=== PATIENT | female | born 1950 ===

== ENCOUNTER 2017-01-18 01:09 | Inpatient (IN) | payer MEDICAID, OTHER ==
[2017-01-18] MEDS ORDERED: Sodium Chloride 0.9% 1,000 ML IV ONE (01:42)
--- NOTE | 2017-01-18 01:51 | C.PDOC ---
History Of Present Illness 66 year old female who presents to the ER with a complaint of abdominal pain that began at 23:00. Patient has a Hx of hernia to the umbilical area; denies nausea, vomiting, or diarrhea. Chief Complaint (Nursing): Abdominal Pain History Per: Patient History/Exam Limitations: no limitations Onset/Duration Of Symptoms: Hrs Current Symptoms Are (Timing): Still Present Location Of Pain/Discomfort: Periumbilical Radiation Of Pain To:: None Quality Of Discomfort: Unable To Describe Associated Symptoms: denies: Nausea, Vomiting, Diarrhea Exacerbating Factors: None Alleviating Factors: None Recent travel outside of the [place]: No Abnormal Vaginal Bleeding: No Past Medical History Reviewed: Historical Data, Nursing Documentation, Vital Signs Vital Signs: Last Vital Signs Temp 98.6 F 01/18/17 03:00 Pulse 59 L 01/18/17 04:21 Resp 14 01/18/17 03:00 BP 148/96 H 01/18/17 03:00 Pulse Ox 99 01/18/17 03:26 - Medical History PMH: No Chronic Diseases Surgical History: No Surg Hx Family History: States: Unknown Family Hx - Social History Hx Alcohol Use: No Hx Substance Use: No - Immunization History Hx Tetanus Toxoid Vaccination: No Hx Influenza Vaccination: No Hx Pneumococcal Vaccination: No Review Of Systems Gastrointestinal: Positive for: Abdominal Pain. Negative for: Nausea, Vomiting , Diarrhea Physical Exam - Physical Exam Appears: Non-toxic, No Acute Distress Skin: Normal Color, Warm, Dry Head: Atraumatic, Normacephalic Oral Mucosa: Moist Chest: Symmetrical, No Tenderness Cardiovascular: Rhythm Regular, No Murmur Respiratory: Normal Breath Sounds, No Rales, No Rhonchi, No Wheezing Gastrointestinal/Abdominal: Soft, Other (Hard nonreducible hernia to umbilical area.) Neurological/Psych: Oriented x3, Normal Speech, Normal Cognition ED Course And Treatment - Laboratory Results Result Diagrams: 01/18/17 02:06 01/18/17 02:06 O2 Sat by Pulse Oximetry: 99 (Room air) Pulse Ox Interpretation: Normal - Radiology CXR: Interpreted by Fl CXR Interpretation: Yes: No Acute Disease, Cardiomegaly. No: Infiltrates - CT Scan/US CT abd/pel Other Rad Studies (CT/US): Read By Radiologist, Radiology Report Reviewed CT/US Interpretation: EXAM: CT Abdomen and Pelvis Without Intravenous Contrast. CLINICAL HISTORY: 66 years old, female; Pain; Abdominal pain; Additional info: Abd pain. TECHNIQUE: Axial computed tomography images of the abdomen and pelvis without intravenous contrast. This. CT exam was performed using one or more of the following dose reduction techniques: automated. exposure control, adjustment of the mA and/or kV according to patient size, and/ or use of iterative. reconstruction technique. Coronal and sagittal reformatted images were created and reviewed. COMPARISON: No relevant prior studies available. FINDINGS: Lower thorax: Mild cardiomegaly. Minimal atelectasis. ABDOMEN: Liver: Innumerable hypodense lesions, most of which too small to characterize. Larger lesions. measure fluid attenuation, compatible with cysts. Few calcifications. Gallbladder and bile ducts: Calcified gallstones. No ductal dilation. Pancreas: Unremarkable. No ductal dilation. Spleen: No splenomegaly. Adrenals: No mass. Kidneys and ureters: No renal calculi. No hydronephrosis. Stomach and bowel: Moderate to large umbilical hernia containing fat, dilated small bowel,. nondilated transverse colon. Several moderately dilated loops of small bowel proximal to hernia. Nondistended loops of small bowel distal to hernia. No definite mural thickening. Appendix: No findings to suggest acute appendicitis. PELVIS: Bladder: Unremarkable. No stones. Reproductive: Small uterine calcification. ABDOMEN and PELVIS: Intraperitoneal space: No significant fluid collection. No free air. Bones/joints: No acute fracture. Soft tissues: See above. Vasculature: Minimal atherosclerotic disease. No aneurysm. Lymph nodes: No pathologically enlarged lymph nodes. IMPRESSION: 1. Umbilical hernia containing bowel with probable resultant obstruction. 2. Incidental/non-acute findings are described above. Progress Note: CT abd/pel, blood work, and CXR ordered. Morphine and IV fluids administered. Disposition Discussed With : Rosas Mayen Doctor Will See Patient In The: Hospital Counseled Patient/Family Regarding: Diagnosis - Disposition Disposition: HOSPITALIZED Disposition Time: 03:01 Condition: STABLE - POA Present On Arrival: None - Clinical Impression Clinical Impression: Abdominal pain, Umbilical hernia, incarcerated - Scribe Statement The provider has reviewed the documentation as recorded by the Scribe Navdeep Hicks All medical record entries made by the Brentibmanny were at my direction and personally dictated by me. I have reviewed the chart and agree that the record accurately reflects my personal performance of the history, physical exam, medical decision making, and the department course for this patient. I have also personally directed, reviewed, and agree with the discharge instructions and disposition.
[2017-01-18] MEDS ORDERED: Sodium Chloride 0.9% 1,000 ML ONE (01:53)
[2017-01-18] MEDS ORDERED: Morphine 4 MG/ML VIAL ONE (02:07)
[2017-01-18 02:09] LABS: BASO % 0.2 % (0.0-2.0); EOS % 0.1 % (0.0-4.0); HEMATOCRIT 42.4 % (34.0-47.0); LYMPH # 0.8 K/uL (1.0-4.3); LYMPH % 6.1 % (20.0-40.0); MEAN CELL VOLUME 87.4 fL (81.0-99.0); MEAN CORPUSCULAR HEMOGLOBIN 28.5 pg (27.0-31.0); MEAN CORPUSCULAR HGB CONC 32.7 g/dL (33.0-37.0); MEAN PLATELET VOLUME 6.6 fL (7.2-11.7); MONO # 0.3 K/uL (0.0-0.8); MONO % 2.3 % (0.0-10.0); PLATELET COUNT 253 K/uL (130-400); RED CELL DISTRIBUTION WIDTH 13.5 % (11.5-14.5); WHITE BLOOD COUNT 13.2 K/uL (4.8-10.8)
[2017-01-18 02:19] LABS: CHLORIDE 103 mmol/L (98-107)
[2017-01-18 02:20] LABS: POTASSIUM 4.1 mmol/L (3.6-5.2); SODIUM 141 mmol/L (132-148)
[2017-01-18 02:22] LABS: ALB/GLOB RATIO 1.2 (1.0-2.1); ALKALINE PHOSPHATASE 104 U/L (38-126); AST/SGOT 46 U/L (14-36); BILIRUBIN,TOTAL 0.7 mg/dL (0.2-1.3); CARBON DIOXIDE 23 mmol/L (22-30); GFR AFRICAN-AMERICAN > 60
[2017-01-18 02:23] LABS: ALT/SGPT 42 U/L (9-52); BLOOD UREA NITROGEN 15 mg/dL (7-17); CALCIUM 9.1 mg/dl (8.6-10.4); GLUCOSE,RANDOM 154 mg/dL (65-105)
[2017-01-18 02:49] LABS: NEUTROPHIL 91 % (50-75); TOTAL CELLS COUNTED 100
--- NOTE | 2017-01-18 02:57 | CT ---
EXAM: CT Abdomen and Pelvis Without Intravenous Contrast CLINICAL HISTORY: 66 years old, female; Pain; Abdominal pain; Additional info: Abd pain TECHNIQUE: Axial computed tomography images of the abdomen and pelvis without intravenous contrast. This CT exam was performed using one or more of the following dose reduction techniques: automated exposure control, adjustment of the mA and/or kV according to patient size, and/or use of iterative reconstruction technique. Coronal and sagittal reformatted images were created and reviewed. COMPARISON: No relevant prior studies available. FINDINGS: Lower thorax: Mild cardiomegaly. Minimal atelectasis. ABDOMEN: Liver: Innumerable hypodense lesions, most of which too small to characterize. Larger lesions measure fluid attenuation, compatible with cysts. Few calcifications. Gallbladder and bile ducts: Calcified gallstones. No ductal dilation. Pancreas: Unremarkable. No ductal dilation. Spleen: No splenomegaly. Adrenals: No mass. Kidneys and ureters: No renal calculi. No hydronephrosis. Stomach and bowel: Moderate to large umbilical hernia containing fat, dilated small bowel, nondilated transverse colon. Several moderately dilated loops of small bowel proximal to hernia. Nondistended loops of small bowel distal to hernia. No definite mural thickening. Appendix: No findings to suggest acute appendicitis. PELVIS: Bladder: Unremarkable. No stones. Reproductive: Small uterine calcification. ABDOMEN and PELVIS: Intraperitoneal space: No significant fluid collection. No free air. Bones/joints: No acute fracture. Soft tissues: See above. Vasculature: Minimal atherosclerotic disease. No aneurysm. Lymph nodes: No pathologically enlarged lymph nodes. IMPRESSION: 1. Umbilical hernia containing bowel with probable resultant obstruction. 2. Incidental/non-acute findings are described above.
[2017-01-18] MEDS ORDERED: HYDROmorphone 0.5 mg/0.5 ml ISec SC PRN (04:23)
--- NOTE | 2017-01-18 07:05 | CP.PCM.HP ---
History of Present Illness - History of Present Illness History of Present Illness: Surgery H & P for Dr. Mayen 66 F w PMH of ventral hernia came with abdominal pain. Pt reports having ventral hernia for 3 year and has been able to reduce it in the past. Pt also had intermittent pain. This time, sharp pain started last night and pt was unable to reduce it this time. Pt is persistent and localised. Reports that hernia has been increasing in size over the years. Area is red and TTP. Pt reports non bloody non bilious N/V since last night and last BM was 2 days ago. No blood. Soft regular BM at that time. Denies F/C/D/Cp/SOB. Last time she ate was last night and worsen the pain. CT shows SB incarcerated ventral hernia with SBO. Present on Admission - Present on Admission Any Indicators Present on Admission: No Review of Systems - Review of Systems Review of Systems: See HPI Past Patient History - Infectious Disease Hx of Infectious Diseases: None - Past Social History Smoking Status: Never Smoked - PSYCHIATRIC Hx Substance Use: No - SURGICAL HISTORY Hx Surgeries: No - ANESTHESIA Hx Anesthesia: No Meds Allergies/Adverse Reactions: Allergies Allergy/AdvReac Type Severity Reaction Status Date / Time No Known Allergies Allergy Unverified 01/18/17 01:36 Physical Exam - Constitutional Appears: In Acute Distress - Head Exam Head Exam: ATRAUMATIC, NORMAL INSPECTION, NORMOCEPHALIC - Eye Exam Eye Exam: EOMI, Normal appearance, PERRL Pupil Exam: NORMAL ACCOMODATION, PERRL - ENT Exam ENT Exam: Mucous Membranes Moist, Normal Exam - Neck Exam Neck exam: Positive for: Normal Inspection - Respiratory Exam Respiratory Exam: Clear to Auscultation Bilateral, NORMAL BREATHING PATTERN - Cardiovascular Exam Cardiovascular Exam: REGULAR RHYTHM - GI/Abdominal Exam GI & Abdominal Exam: Guarding, Hernia, Soft, Tenderness. absent: Distended, Firm, Rebound, Rigid Additional comments: 20x 20 x 5 cm ventral hernia. Erythema. TTP. - Rectal Exam Rectal Exam: NORMAL INSPECTION - Exam Exam: NORMAL INSPECTION - Extremities Exam Extremities exam: Positive for: full ROM, normal inspection - Back Exam Back exam: NORMAL INSPECTION - Neurological Exam Neurological exam: Alert, CN II-XII Intact, Normal Gait, Oriented x3, Reflexes Normal - Psychiatric Exam Psychiatric exam: Normal Affect, Normal Mood - Skin Skin Exam: Dry, Intact, Normal Color, Warm Results - Vital Signs Recent Vital Signs: Last Vital Signs Temp 98.3 F 01/18/17 05:20 Pulse 61 01/18/17 05:20 Resp 20 01/18/17 05:20 BP 148/87 01/18/17 05:20 Pulse Ox 97 01/18/17 05:20 - Labs Result Diagrams: 01/18/17 02:06 01/18/17 02:06 Assessment & Plan - Assessment and Plan (Free Text) Assessment: Incarcerated ventral hernia -OR today at 11AM -COnsent in chart. -IVF -ABX -NPO DW Dr. Mayen
[2017-01-18] MEDS: Piperacillin/Tazobact 3.375 GM in Sodium Chloride 100 ML IVPB SCH ×4 (07:53→20:46)
[2017-01-18] MEDS ORDERED: Midazolam 2 MG/2 ML VIAL ONE (10:04)
[2017-01-18] MEDS ORDERED: Propofol 10 mg/ml Inj (20 ML) ONE (10:04)
[2017-01-18] MEDS ORDERED: Rocuronium 10 mg/ml (5 ml) ONE (10:05)
[2017-01-18] MEDS ORDERED: Succinylcholine Chloride 20 mg/ml Syr (5 ml) IV ONE (10:11)
--- NOTE | 2017-01-18 10:19 | RAD ---
PROCEDURE: CHEST RADIOGRAPH, 1 VIEW HISTORY: abd pain/ admission COMPARISON: None available. FINDINGS: LUNGS: Poor inspiration with low lung volumes, crowded bronchovascular markings and mild bibasilar atelectasis. PLEURA: No pneumothorax or pleural fluid seen. CARDIOVASCULAR: Cardiomegaly. OSSEOUS STRUCTURES: No significant abnormalities. VISUALIZED UPPER ABDOMEN: Normal. OTHER FINDINGS: None. IMPRESSION: Poor inspiration with low lung volumes, crowded bronchovascular markings and mild bibasilar atelectasis.
[2017-01-18] MEDS ORDERED: Neostigmine Methylsulfate 3mg/3ml Syringe IV ONE (10:55)
[2017-01-18] MEDS ORDERED: Lactated Ringer's 1,000 ML IV ONE ×2 (11:23→20:38)
[2017-01-18] MEDS ORDERED: HYDROmorphone 0.5 mg/0.5 ml ISec IVP PRN ×2 (11:26→11:45)
--- NOTE | 2017-01-18 11:29 | PCM.SURG1 ---
Surgeon's Initial Post Op Note - Surgeon's Notes Surgeon: Dr. Mayen Fermenter Helper: Luiza Novoa, PGY2 Pre-Operative Diagnosis: Incarcerated umbilical hernia Operative Findings: See full report Post-Operative Diagnosis: same Operation Performed: Exploratory laparotomy with reduction of incarcerated bowel and repair of umbilical hernia with mesh Specimen/Specimens Removed: hernia sac Estimated Blood Loss: EBL {In ML}: 100 Date of Surgery/Procedure: 01/18/17 Time of Surgery/Procedure: 10:00
[2017-01-18] MEDS: Lactated Ringer's 1,000 ML IV SCH ×3 (13:00→22:30)
[2017-01-18] MEDS ORDERED: Lactated Ringer's 500 ML IV ONE (18:27)
--- NOTE | 2017-01-18 22:27 | OP ---
PROCEDURE DATE: 01/18/2017 PREOPERATIVE DIAGNOSIS: Incarcerated umbilical hernia, possibly strangulated. PROCEDURE PERFORMED: Repair of the hernia, lysis of adhesions, and exploratory laparotomy. FINDINGS: There was a huge mass in the umbilical area and this mass is a large hernia containing multiple loops of small bowel, omentum, and transverse colon. The bowels were viable; however, there were dense adhesions noted between the sac and the omentum. No other pathology noted except for some small amount of ascitic fluid noted during the start of the procedure. PROCEDURE: Under general anesthesia, the patient was prepared and draped in sterile fashion. A low-transverse incision was made over the mass, extended down the subcutaneous tissue. The skin was so thinned out that when incision was made, the sac was opened and a large amount of serous fluid was noted. There was no injury to the bowel at this *------*. The sac was then opened all the way down to the fascia level. At this point, the omental adhesions were taken down to free it. After a while, I was able to reduce the entire hernia. Because of the size of the incarcerated bowel, the fascial defect was increased in size by incising it both sides. This allowed me to reduce the hernia in small bowel, transverse colon, and omentum. The extra sac was then excised and then it was closed utilizing a continuous over and over suture of 0 Vicryl. The fascia was then closed with continuous suture of 0 Prolene and then this was reinforced by putting a ProLite mesh on the surface, suturing it to the fascia all the way around with multiple interrupted sutures of 0 Prolene. A drain was left in place. The umbilicus was tacked down into the fascia and the skin was closed with multiple skin arabella. Estimated blood loss probably about 100 mL. The patient tolerated the procedure quite well, left the operating room in good condition. Rosas Mayen MD
[2017-01-19] MEDS: HYDROmorphone 1 mg/ml ISec IVP PRN (00:34)
--- NOTE | 2017-01-19 01:51 | CP.PCM.PN ---
Subjective - Date & Time of Evaluation Date of Evaluation: 01/19/17 Time of Evaluation: 07:00 - Subjective Subjective: Patient seen and examined this AM. Yesterday evening patient had low UOP and was given fluid bolus challenges of 1500cc of LR with low, but adequate response. Approximately 50cc's sanguinous output from the gracy drain lying superficial to the abdominal fascia. Patient reports some pain, but denies any fevers, chills, nausea, vomiting, or any other symptoms. Objective - Vital Signs/Intake and Output Vital Signs (last 24 hours): Temp Pulse Resp BP Pulse Ox 99.5 F 73 20 110/68 95 01/18/17 19:57 01/18/17 19:57 01/18/17 19:57 01/18/17 19:57 01/18/17 19:57 Intake and Output: 01/18/17 01/19/17 18:59 06:59 Intake Total 1500 2100 Output Total 260 190 Balance 1240 1910 - Medications Medications: Current Medications Acetaminophen (Tylenol 325mg Tab) 650 mg PO Q6 PRN PRN Reason: Fever >100.4 F Hydromorphone HCl (Dilaudid) 1 mg IVP Q4H PRN PRN Reason: Pain, moderate (4-7) Last Admin: 01/19/17 00:34 Dose: 1 mg Piperacillin Sod/Tazobactam (Sod 3.375 gm/ Sodium Chloride) 100 mls @ 200 mls/ hr IVPB Q8H [facility] Last Admin: 01/18/17 20:46 Dose: 200 mls/hr Lactated Ringer's (Lactated Ringer's) 1,000 mls @ 100 mls/hr IV .Q10H [facility] Last Admin: 01/18/17 22:30 Dose: Not Given Ondansetron HCl (Zofran Inj) 4 mg IVP DAILY@ONCE PRN PRN Reason: Nausea/Vomiting - Labs Labs: PT 11.0 SECONDS (9.7-12.2) 01/18/17 02:06 INR 1.0 01/18/17 02:06 APTT 29 SECONDS (21-34) 01/18/17 02:06 - Constitutional Appears: No Acute Distress - Head Exam Head Exam: ATRAUMATIC, NORMOCEPHALIC - Eye Exam Eye Exam: Normal appearance. absent: Conjunctival injection, Scleral icterus - ENT Exam ENT Exam: Mucous Membranes Dry, Normal Oropharynx Additional comments: NGT in place in the right nares with minimal green/yellow clear liquid output - Respiratory Exam Respiratory Exam: NORMAL BREATHING PATTERN. absent: Accessory Muscle Use, Respiratory Distress - GI/Abdominal Exam GI & Abdominal Exam: Distended, Soft, Tenderness Additional comments: surgical dresssing C/D/i, Gracy drain in place with approximately 10cc's of sanguinous fluid - Extremities Exam Extremities Exam: absent: Calf Tenderness, Pedal Edema, Tenderness - Neurological Exam Neurological Exam: Alert, Awake, Oriented x3 - Psychiatric Exam Psychiatric exam: Flat Affect, Normal Mood - Skin Skin Exam: Dry, Normal Color, Warm Assessment and Plan - Assessment and Plan (Free Text) Assessment: 66F with incarcerated umbilical hernia containing obstructed bowel POD#1 s/p exploratory laparotomy with hernia reduction and repair with mesh Low UOP despite 2.5L boluses and 125cc/h LR overnight Plan: -D/C NGT -Trial CLD -continue trending CBC and BMP -Monitor drain output and urine output closely -Encourage incentive spirometer and ambulation -analgesia, anti-emetics -GI ppx, SCD's Discussed with Dr. Faheem Novoa PGY2
[2017-01-19] MEDS ORDERED: Sodium Chloride 0.9% 1,000 ML IV ONE (04:22)
[2017-01-19] MEDS: Piperacillin/Tazobact 3.375 GM in Sodium Chloride 100 ML IVPB SCH ×2 (04:32→11:44)
[2017-01-19] MEDS ORDERED: Benzocaine/Menthol (Cepacol) Lozenge MT PRN (06:29)
[2017-01-19 07:44] LABS: HEMATOCRIT 30.6 % (34.0-47.0); MEAN CELL VOLUME 87.8 fL (81.0-99.0); MEAN CORPUSCULAR HEMOGLOBIN 29.7 pg (27.0-31.0); MEAN CORPUSCULAR HGB CONC 33.8 g/dL (33.0-37.0); MEAN PLATELET VOLUME 6.6 fL (7.2-11.7); RED CELL DISTRIBUTION WIDTH 13.7 % (11.5-14.5); WHITE BLOOD COUNT 9.2 K/uL (4.8-10.8)
[2017-01-19 07:47] LABS: AST/SGOT 37 U/L (14-36); BILIRUBIN,TOTAL 1.3 mg/dL (0.2-1.3); BLOOD UREA NITROGEN 15 mg/dL (7-17); CALCIUM 7.1 mg/dl (8.6-10.4); CARBON DIOXIDE 26 mmol/L (22-30); CHLORIDE 105 mmol/L (98-107); GFR AFRICAN-AMERICAN > 60; GLUCOSE,RANDOM 115 mg/dL (65-105); POTASSIUM 3.7 mmol/L (3.6-5.2); TOTAL PROTEIN 5.2 g/dL (6.3-8.3)
[2017-01-19 08:05] LABS: ALKALINE PHOSPHATASE 58 U/L (38-126); ALT/SGPT 31 U/L (9-52); SODIUM 140 mmol/L (132-148)
[2017-01-19] MEDS: Lactated Ringer's 1,000 ML IV SCH ×2 (09:14→18:33)
--- NOTE | 2017-01-19 10:23 | RAD ---
HISTORY: Evaluate for atelectasis COMPARISON: Comparison made with prior study 01/18/2017 at 0230 hrs. FINDINGS: LUNGS: In situ NGT, tip of which lies left upper quadrant of the abdomen. Poor inspiration with low lung volumes, crowded bronchovascular markings and bibasilar atelectasis. PLEURA: No significant pleural effusion identified, no pneumothorax apparent. CARDIOVASCULAR: Heart remains enlarged. Aorta is ectatic and uncoiled. OSSEOUS STRUCTURES: No significant abnormalities. VISUALIZED UPPER ABDOMEN: Normal. OTHER FINDINGS: None. IMPRESSION: Poor inspiration with low lung volumes, crowded bronchovascular markings and mild bibasilar atelectasis. Developing infiltrates could be excluded followup radiographs. In situ NGT as above. Cardiomegaly.
[2017-01-19] MEDS: Piperacill/Tazo 3.375gm in Dex 3.375 GM/50 ML BAG IVPB SCH (19:46)
[2017-01-20] MEDS: HYDROmorphone 1 mg/ml ISec IVP PRN (03:29)
[2017-01-20] MEDS: Piperacill/Tazo 3.375gm in Dex 3.375 GM/50 ML BAG IVPB SCH ×3 (03:30→20:53)
[2017-01-20 06:14] LABS: HEMATOCRIT 30.8 % (34.0-47.0); MEAN CELL VOLUME 87.2 fL (81.0-99.0); MEAN CORPUSCULAR HEMOGLOBIN 28.9 pg (27.0-31.0); MEAN CORPUSCULAR HGB CONC 33.1 g/dL (33.0-37.0); MEAN PLATELET VOLUME 6.7 fL (7.2-11.7); RED CELL DISTRIBUTION WIDTH 13.3 % (11.5-14.5); WHITE BLOOD COUNT 11.5 K/uL (4.8-10.8)
[2017-01-20 07:19] LABS: CHLORIDE 102 mmol/L (98-107); SODIUM 140 mmol/L (132-148)
[2017-01-20 07:20] LABS: POTASSIUM 3.5 mmol/L (3.6-5.2)
[2017-01-20 07:22] LABS: ALKALINE PHOSPHATASE 62 U/L (38-126); ALT/SGPT 37 U/L (9-52); AST/SGOT 38 U/L (14-36); BLOOD UREA NITROGEN 10 mg/dL (7-17); CARBON DIOXIDE 26 mmol/L (22-30); GFR AFRICAN-AMERICAN > 60; GLUCOSE,RANDOM 114 mg/dL (65-105); TOTAL PROTEIN 5.7 g/dL (6.3-8.3)
[2017-01-20 07:23] LABS: CALCIUM 7.7 mg/dl (8.6-10.4)
--- NOTE | 2017-01-20 07:53 | CP.PCM.PN ---
Subjective - Date & Time of Evaluation Date of Evaluation: 01/20/17 Time of Evaluation: 07:15 - Subjective Subjective: General Sx progress note for Dr. Robert Combs, PGY-1 Pt S & E at bedside. Pt tolerated CLD diet yesterday, is voiding, continues with some ab pain. Currently with some nausea. Denies V/F/C, SOB, flatus, BM. Abdominal drain w/ 40cc serosanguinous output over last 24H. Objective - Vital Signs/Intake and Output Vital Signs (last 24 hours): Temp Pulse Resp BP Pulse Ox 98.4 F 66 20 124/77 99 01/20/17 04:25 01/20/17 04:25 01/20/17 04:25 01/20/17 04:25 01/20/17 04:25 Intake and Output: 01/20/17 01/20/17 06:59 18:59 Intake Total 1000 Output Total 720 Balance 280 - Medications Medications: Current Medications Acetaminophen (Tylenol 325mg Tab) 650 mg PO Q6 PRN PRN Reason: Fever >100.4 F Benzocaine/Menthol (Cepacol Sore Throat) 1 yuridia MT Q1 PRN PRN Reason: Sore Throat Hydromorphone HCl (Dilaudid) 1 mg IVP Q4H PRN PRN Reason: Pain, moderate (4-7) Last Admin: 01/20/17 03:29 Dose: 1 mg Lactated Ringer's (Lactated Ringer's) 1,000 mls @ 100 mls/hr IV .Q10H [facility] Last Admin: 01/19/17 18:33 Dose: 100 mls/hr Piperacillin Sod/Tazobactam Sod (Zosyn 3.375 Gm Iv Premix) 3.375 gm in 50 mls @ 100 mls/hr IVPB Q8H [facility] Last Admin: 01/20/17 03:30 Dose: 100 mls/hr Ondansetron HCl (Zofran Inj) 4 mg IVP DAILY@ONCE PRN PRN Reason: Nausea/Vomiting - Labs Labs: 01/20/17 06:00 01/20/17 06:00 PT 11.0 SECONDS (9.7-12.2) 01/18/17 02:06 INR 1.0 01/18/17 02:06 APTT 29 SECONDS (21-34) 01/18/17 02:06 - Constitutional Appears: Non-toxic, No Acute Distress - Head Exam Head Exam: ATRAUMATIC, NORMAL INSPECTION, NORMOCEPHALIC - Eye Exam Eye Exam: EOMI, Normal appearance - ENT Exam ENT Exam: Mucous Membranes Moist, Normal Exam - Neck Exam Neck Exam: Full ROM - Respiratory Exam Respiratory Exam: Clear to Ausculation Bilateral, NORMAL BREATHING PATTERN - Cardiovascular Exam Cardiovascular Exam: REGULAR RHYTHM, +S1, +S2 - GI/Abdominal Exam GI & Abdominal Exam: Soft, Tenderness, Hypoactive Bowel Sounds. absent: Distended, Firm, Guarding, Rigid Additional comments: Lower abdomen with dressing in place- C/D/I, SONI drain with ~10cc serosanginous output - Extremities Exam Extremities Exam: Normal Inspection. absent: Pedal Edema - Neurological Exam Neurological Exam: Alert, Awake, CN II-XII Intact, Oriented x3 - Psychiatric Exam Psychiatric exam: Normal Affect, Normal Mood - Skin Skin Exam: Dry, Warm Assessment and Plan - Assessment and Plan (Free Text) Assessment: 66F POD#2 s/p ex lap w/hernia reduction and repair w/mesh 2/2 incarcerated umbilical hernia w/obstructed bowel. Now voiding. Plan: Abdominal dressing changed this AM Cont CLD Awaiting ROBF Monitor drain ouput Encourage IS Encourage ambulation OOBTC pain mgmt Anti-emetics GI ppx SCDs PT DW attending Lauryn, PGY-1
--- NOTE | 2017-01-20 13:18 | CP.PCM.PN ---
Subjective - Date & Time of Evaluation Date of Evaluation: 01/20/17 Time of Evaluation: 13:16 - Subjective Subjective: patient denies passing flatus, is marked;y distended, and obviously has ileus. will start reglan q6h iv Objective - Vital Signs/Intake and Output Vital Signs (last 24 hours): Temp Pulse Resp BP Pulse Ox 98.1 F 69 20 166/99 H 98 01/20/17 07:40 01/20/17 07:40 01/20/17 07:40 01/20/17 07:40 01/20/17 07:40 Intake and Output: 01/20/17 01/20/17 06:59 18:59 Intake Total 1000 Output Total 720 Balance 280 - Medications Medications: Current Medications Acetaminophen (Tylenol 325mg Tab) 650 mg PO Q6 PRN PRN Reason: Fever >100.4 F Benzocaine/Menthol (Cepacol Sore Throat) 1 yuridia MT Q1 PRN PRN Reason: Sore Throat Last Admin: 01/20/17 11:16 Dose: 1 yuridia Hydromorphone HCl (Dilaudid) 1 mg IVP Q4H PRN PRN Reason: Pain, moderate (4-7) Last Admin: 01/20/17 03:29 Dose: 1 mg Lactated Ringer's (Lactated Ringer's) 1,000 mls @ 100 mls/hr IV .Q10H [facility] Last Admin: 01/19/17 18:33 Dose: 100 mls/hr Piperacillin Sod/Tazobactam Sod (Zosyn 3.375 Gm Iv Premix) 3.375 gm in 50 mls @ 100 mls/hr IVPB Q8H [facility] Last Admin: 01/20/17 11:13 Dose: 100 mls/hr Ondansetron HCl (Zofran Inj) 4 mg IVP DAILY@ONCE PRN PRN Reason: Nausea/Vomiting Last Admin: 01/20/17 09:00 Dose: 4 mg - Labs Labs: 01/20/17 06:00 01/20/17 06:00 PT 11.0 SECONDS (9.7-12.2) 01/18/17 02:06 INR 1.0 01/18/17 02:06 APTT 29 SECONDS (21-34) 01/18/17 02:06
[2017-01-20] MEDS: Lactated Ringer's 1,000 ML IV SCH (14:15)
[2017-01-20] MEDS ORDERED: Oxycodone/Acetaminophen 5/325 mg Tab PO PRN ×2 (15:42→15:45)
[2017-01-21] MEDS: Piperacill/Tazo 3.375gm in Dex 3.375 GM/50 ML BAG IVPB SCH ×3 (04:45→20:30)
[2017-01-21 06:55] LABS: HEMATOCRIT 30.5 % (34.0-47.0); MEAN CELL VOLUME 87.3 fL (81.0-99.0); MEAN CORPUSCULAR HEMOGLOBIN 29.9 pg (27.0-31.0); MEAN CORPUSCULAR HGB CONC 34.2 g/dL (33.0-37.0); MEAN PLATELET VOLUME 6.8 fL (7.2-11.7); RED CELL DISTRIBUTION WIDTH 13.2 % (11.5-14.5)
[2017-01-21 07:04] LABS: CHLORIDE 99 mmol/L (98-107); POTASSIUM 3.3 mmol/L (3.6-5.2); SODIUM 138 mmol/L (132-148)
[2017-01-21 07:06] LABS: ALKALINE PHOSPHATASE 57 U/L (38-126); AST/SGOT 36 U/L (14-36); CARBON DIOXIDE 25 mmol/L (22-30); GFR AFRICAN-AMERICAN > 60
[2017-01-21 07:07] LABS: ALT/SGPT 34 U/L (9-52); BLOOD UREA NITROGEN 14 mg/dL (7-17); CALCIUM 7.7 mg/dl (8.6-10.4); GLUCOSE,RANDOM 98 mg/dL (65-105); TOTAL PROTEIN 5.6 g/dL (6.3-8.3)
--- NOTE | 2017-01-21 08:10 | CP.PCM.PN ---
Subjective - Date & Time of Evaluation Date of Evaluation: 01/21/17 Time of Evaluation: 08:09 - Subjective Subjective: General sx progress note for Dr. Robert Combs, PGY-1 Pt S & E at bedside. Pt tolerating FLD, admits to flatus. Denies N/V/F/C, BM, SOB, CP, ab pain. Has not been OOB yet. Shaun drain with 40cc serosanguinous output/24H. Objective - Vital Signs/Intake and Output Vital Signs (last 24 hours): Temp Pulse Resp BP Pulse Ox 98.2 F 72 20 143/85 97 01/21/17 07:30 01/21/17 07:30 01/21/17 07:30 01/21/17 07:30 01/21/17 07:30 Intake and Output: 01/21/17 01/21/17 06:59 18:59 Intake Total 200 Output Total 320 Balance -120 - Medications Medications: Current Medications Acetaminophen (Tylenol 325mg Tab) 650 mg PO Q6 PRN PRN Reason: Fever >100.4 F Benzocaine/Menthol (Cepacol Sore Throat) 1 yuridia MT Q1 PRN PRN Reason: Sore Throat Last Admin: 01/20/17 11:16 Dose: 1 yuridia Heparin Sodium (Porcine) (Heparin) 5,000 units SC Q12 [facility]O Piperacillin Sod/Tazobactam Sod (Zosyn 3.375 Gm Iv Premix) 3.375 gm in 50 mls @ 100 mls/hr IVPB Q8H [facility] Last Admin: 01/21/17 04:45 Dose: 100 mls/hr Ondansetron HCl (Zofran Inj) 4 mg IVP DAILY@ONCE PRN PRN Reason: Nausea/Vomiting Last Admin: 01/20/17 09:00 Dose: 4 mg Oxycodone/Acetaminophen (Percocet 5/325 Mg Tab) 1 tab PO Q6H PRN PRN Reason: Pain, moderate (4-7) Stop: 01/23/17 15:43 Oxycodone/Acetaminophen (Percocet 5/325 Mg Tab) 2 tab PO Q6H PRN PRN Reason: Pain, severe (8-10) Stop: 01/23/17 15:46 Last Admin: 01/21/17 06:07 Dose: 2 tab Potassium Chloride (K-Dur 20 Meq Er Tab) 20 meq PO DAILY GAETANO - Labs Labs: 01/21/17 06:43 01/21/17 06:43 PT 11.0 SECONDS (9.7-12.2) 01/18/17 02:06 INR 1.0 01/18/17 02:06 APTT 29 SECONDS (21-34) 01/18/17 02:06 - Constitutional Appears: Non-toxic, No Acute Distress - Head Exam Head Exam: ATRAUMATIC, NORMAL INSPECTION, NORMOCEPHALIC - Eye Exam Eye Exam: EOMI, Normal appearance - ENT Exam ENT Exam: Mucous Membranes Moist, Normal Exam - Neck Exam Neck Exam: Full ROM - Respiratory Exam Respiratory Exam: Clear to Ausculation Bilateral, NORMAL BREATHING PATTERN. absent: Rales, Rhonchi, Wheezes, Respiratory Distress - Cardiovascular Exam Cardiovascular Exam: REGULAR RHYTHM, +S1, +S2 - GI/Abdominal Exam GI & Abdominal Exam: Distended, Soft, Hyperactive Bowel Sounds. absent: Firm, Guarding, Rigid, Tenderness Additional comments: Lower horizontal surgical incision with arabella intact minimal erythema, no drainage. Shaun drain in place with ~5cc serosanguinous output. - Extremities Exam Extremities Exam: Normal Inspection. absent: Pedal Edema - Neurological Exam Neurological Exam: Alert, Awake, CN II-XII Intact, Oriented x3 - Psychiatric Exam Psychiatric exam: Normal Affect, Normal Mood - Skin Skin Exam: Dry, Intact, Normal Color, Warm Assessment and Plan - Assessment and Plan (Free Text) Assessment: 66F POD#3 s/p ex lap w/hernia reduction and repair w/mesh 2/2 incarcerated umbilical hernia w/obstructed bowel. No BM yet. Plan: Abdominal dressing removed this AM Cont FLD Awaiting BM Monitor drain ouput Encourage IS Encourage ambulation OOBTC pain mgmt Anti-emetics GI ppx SCDs Reglan as per Dr. Mayen PT Will DW attending Lauryn, PGY-1
[2017-01-21] MEDS: Potassium Chloride 20 mEq ER Tab PO SCH (09:08)
[2017-01-22] MEDS: Piperacill/Tazo 3.375gm in Dex 3.375 GM/50 ML BAG IVPB SCH ×3 (04:09→21:33)
[2017-01-22] MEDS: Potassium Chloride 20 mEq ER Tab PO SCH (09:28)
[2017-01-22 11:20] LABS: BASO % 0.4 % (0.0-2.0); EOS # 0.3 K/uL (0.0-0.7); EOS % 3.2 % (0.0-4.0); HEMATOCRIT 33.1 % (34.0-47.0); LYMPH # 1.2 K/uL (1.0-4.3); LYMPH % 14.1 % (20.0-40.0); MEAN CELL VOLUME 87.4 fL (81.0-99.0); MEAN CORPUSCULAR HEMOGLOBIN 29.5 pg (27.0-31.0); MEAN CORPUSCULAR HGB CONC 33.8 g/dL (33.0-37.0); MONO # 0.7 K/uL (0.0-0.8); MONO % 7.9 % (0.0-10.0); RED CELL DISTRIBUTION WIDTH 13.3 % (11.5-14.5); WHITE BLOOD COUNT 8.5 K/uL (4.8-10.8)
[2017-01-22 11:32] LABS: CHLORIDE 96 mmol/L (98-107)
[2017-01-22 11:33] LABS: POTASSIUM 3.4 mmol/L (3.6-5.2); SODIUM 138 mmol/L (132-148)
[2017-01-22 11:35] LABS: AST/SGOT 37 U/L (14-36); BILIRUBIN,TOTAL 0.9 mg/dL (0.2-1.3); CARBON DIOXIDE 29 mmol/L (22-30); GFR AFRICAN-AMERICAN > 60
[2017-01-22 11:36] LABS: ALB/GLOB RATIO 1.1 (1.0-2.1); ALKALINE PHOSPHATASE 76 U/L (38-126); ALT/SGPT 36 U/L (9-52); BLOOD UREA NITROGEN 13 mg/dL (7-17); CALCIUM 8.2 mg/dl (8.6-10.4); GLUCOSE,RANDOM 153 mg/dL (65-105); TOTAL PROTEIN 6.6 g/dL (6.3-8.3)
--- NOTE | 2017-01-22 14:40 | CARD ---
APPROVED REPORT EKG Measurement Heart [id number] <Conclusion> Sinus bradycardia LVH with repolarization abnormality. Prolonged QT Abnormal ECG
--- NOTE | 2017-01-22 14:54 | CP.PCM.PN ---
Subjective - Date & Time of Evaluation Date of Evaluation: 01/22/17 Time of Evaluation: 07:40 - Subjective Subjective: Patient seen and examined this AM. CAROLO. Patient states that she has been passing gas but not had a bowel movement. Patient ambulated with nursing yesterday. Patient's reports pain well controlled with current regimen, is tolerating FLD. Objective - Vital Signs/Intake and Output Vital Signs (last 24 hours): Temp Pulse Resp BP Pulse Ox 98.6 F 76 20 162/83 H 95 01/22/17 08:08 01/22/17 08:08 01/22/17 08:08 01/22/17 08:08 01/22/17 08:08 Intake and Output: 01/22/17 01/22/17 06:59 18:59 Intake Total 250 310 Output Total 15 Balance 235 310 - Medications Medications: Current Medications Acetaminophen (Tylenol 325mg Tab) 650 mg PO Q6 PRN PRN Reason: Fever >100.4 F Benzocaine/Menthol (Cepacol Sore Throat) 1 yuridia MT Q1 PRN PRN Reason: Sore Throat Last Admin: 01/20/17 11:16 Dose: 1 yuridia Heparin Sodium (Porcine) (Heparin) 5,000 units SC Q12 [facility] Last Admin: 01/22/17 09:28 Dose: 5,000 units Piperacillin Sod/Tazobactam Sod (Zosyn 3.375 Gm Iv Premix) 3.375 gm in 50 mls @ 100 mls/hr IVPB Q8H [facility] Last Admin: 01/22/17 11:48 Dose: 100 mls/hr Metoclopramide HCl (Reglan) 10 mg IVP Q6 [facility] Last Admin: 01/22/17 11:48 Dose: 10 mg Ondansetron HCl (Zofran Inj) 4 mg IVP DAILY@ONCE PRN PRN Reason: Nausea/Vomiting Last Admin: 01/22/17 10:10 Dose: 4 mg Oxycodone/Acetaminophen (Percocet 5/325 Mg Tab) 1 tab PO Q6H PRN PRN Reason: Pain, moderate (4-7) Stop: 01/23/17 15:43 Oxycodone/Acetaminophen (Percocet 5/325 Mg Tab) 2 tab PO Q6H PRN PRN Reason: Pain, severe (8-10) Stop: 01/23/17 15:46 Last Admin: 01/21/17 06:07 Dose: 2 tab Potassium Chloride (K-Dur 20 Meq Er Tab) 20 meq PO DAILY GA[facility]ANO Last Admin: 01/22/17 09:28 Dose: 20 meq - Labs Labs: 01/22/17 11:11 01/22/17 11:11 PT 11.0 SECONDS (9.7-12.2) 01/18/17 02:06 INR 1.0 01/18/17 02:06 APTT 29 SECONDS (21-34) 01/18/17 02:06 - Constitutional Appears: Well, Non-toxic, No Acute Distress - Head Exam Head Exam: ATRAUMATIC, NORMOCEPHALIC - Eye Exam Eye Exam: Normal appearance. absent: Conjunctival injection, Scleral icterus - ENT Exam ENT Exam: Mucous Membranes Moist, Normal Oropharynx - Respiratory Exam Respiratory Exam: NORMAL BREATHING PATTERN. absent: Accessory Muscle Use, Respiratory Distress - Cardiovascular Exam Cardiovascular Exam: RRR - GI/Abdominal Exam GI & Abdominal Exam: Soft. absent: Distended, Tenderness Additional comments: gracy drain with scant sanguinous outpus - Extremities Exam Extremities Exam: Full ROM, Normal Inspection. absent: Calf Tenderness, Pedal Edema - Neurological Exam Neurological Exam: Alert, Awake, Oriented x3 - Psychiatric Exam Psychiatric exam: Normal Affect, Normal Mood - Skin Skin Exam: Dry, Intact, Normal Color, Warm Assessment and Plan - Assessment and Plan (Free Text) Assessment: 66F POD#4 s/p ex lap w/hernia reduction and repair w/mesh 2/2 incarcerated umbilical hernia w/obstructed bowel Plan: regular diet as tolerated D/C gracy drain Encourage IS Encourage ambulation pain mgmt, Anti-emetics GI ppx, DVT ppx Discussed with Dr. Faheem Novoa, PGY2
[2017-01-22] MEDS ORDERED: Tramadol 25 mg PO PRN (17:12)
[2017-01-23 02:41] VITALS: TEMP 98.2
[2017-01-23] MEDS: Piperacill/Tazo 3.375gm in Dex 3.375 GM/50 ML BAG IVPB SCH (04:42)
[2017-01-23 07:05] LABS: BLOOD UREA NITROGEN 12 mg/dL (7-17); CALCIUM 7.9 mg/dl (8.6-10.4); CARBON DIOXIDE 30 mmol/L (22-30); CHLORIDE 97 mmol/L (98-107); GFR AFRICAN-AMERICAN > 60; GLUCOSE,RANDOM 119 mg/dL (65-105); POTASSIUM 3.6 mmol/L (3.6-5.2); SODIUM 139 mmol/L (132-148)
[2017-01-23 07:17] LABS: BASO % 0.2 % (0.0-2.0); EOS # 0.3 K/uL (0.0-0.7); EOS % 2.9 % (0.0-4.0); HEMATOCRIT 30.1 % (34.0-47.0); LYMPH # 0.8 K/uL (1.0-4.3); LYMPH % 8.8 % (20.0-40.0); MEAN CELL VOLUME 86.8 fL (81.0-99.0); MEAN CORPUSCULAR HEMOGLOBIN 29.4 pg (27.0-31.0); MEAN CORPUSCULAR HGB CONC 33.8 g/dL (33.0-37.0); MEAN PLATELET VOLUME 6.9 fL (7.2-11.7); MONO # 0.7 K/uL (0.0-0.8); NRBC % 0.1 % (0.0-2.0); PLATELET COUNT 288 K/uL (130-400); RED CELL DISTRIBUTION WIDTH 13.4 % (11.5-14.5); WHITE BLOOD COUNT 9.3 K/uL (4.8-10.8)
[2017-01-23 08:38] LABS: EOSINOPHIL 2 % (0-4); NEUTROPHIL 90 % (50-75); TOTAL CELLS COUNTED 100
[2017-01-23 08:42] VITALS: BP 158/91; PULSE 74; RESP 18; O2SAT 96
[2017-01-23] MEDS: Potassium Chloride 20 mEq ER Tab PO SCH (10:42)
[2017-01-23] MEDS ORDERED: Multiple Vitamins Tab PO SCH (11:15)
--- NOTE | 2017-01-23 11:16 | CP.PCM.DIS ---
Provider - Provider Date of Admission: 01/18/17 03:03 Attending physician: Rosas Mayen MD Primary care physician: Unknown Consults: None Time Spent in preparation of Discharge (in minutes): 60 Diagnosis - Discharge Diagnosis (1) Incarcerated ventral hernia Status: Acute (2) Status post repair of ventral hernia Status: Acute Hospital Course - Lab Results Lab Results: Most Recent Lab Values WBC 9.3 K/uL (4.8-10.8) 01/23/17 06:36 RBC 3.47 Mil/uL (3.80-5.20) L 01/23/17 06:36 Hgb 10.2 g/dL (11.0-16.0) L 01/23/17 06:36 Hct 30.1 % (34.0-47.0) L 01/23/17 06:36 MCV 86.8 fL (81.0-99.0) 01/23/17 06:36 MCH 29.4 pg (27.0-31.0) 01/23/17 06:36 MCHC 33.8 g/dL (33.0-37.0) 01/23/17 06:36 RDW 13.4 % (11.5-14.5) 01/23/17 06:36 Plt Count 288 K/uL (130-400) 01/23/17 06:36 MPV 6.9 fL (7.2-11.7) L 01/23/17 06:36 Neut % (Auto) 81.1 % (50.0-75.0) H 01/23/17 06:36 Lymph % (Auto) 8.8 % (20.0-40.0) L 01/23/17 06:36 Citrus % (Auto) 7.0 % (0.0-10.0) 01/23/17 06:36 Eos % (Auto) 2.9 % (0.0-4.0) 01/23/17 06:36 Baso % (Auto) 0.2 % (0.0-2.0) 01/23/17 06:36 Neut # 7.6 K/uL (1.8-7.0) H 01/23/17 06:36 Lymph # 0.8 K/uL (1.0-4.3) L 01/23/17 06:36 Citrus # 0.7 K/uL (0.0-0.8) 01/23/17 06:36 Eos # 0.3 K/uL (0.0-0.7) 01/23/17 06:36 Baso # 0.0 K/uL (0.0-0.2) 01/23/17 06:36 Neutrophils % (Manual) 90 % (50-75) H 01/23/17 06:36 Lymphocytes % (Manual) 3 % (20-40) L 01/23/17 06:36 Monocytes % (Manual) 5 % (0-10) 01/23/17 06:36 Eosinophils % (Manual) 2 % (0-4) 01/23/17 06:36 Platelet Estimate Normal (NORMAL) 01/23/17 06:36 RBC Morphology Normal 01/23/17 06:36 PT 11.0 SECONDS (9.7-12.2) 01/18/17 02:06 INR 1.0 01/18/17 02:06 APTT 29 SECONDS (21-34) 01/18/17 02:06 Sodium 139 mmol/L (132-148) 01/23/17 06:36 Potassium 3.6 mmol/L (3.6-5.2) 01/23/17 06:36 Chloride 97 mmol/L (98-107) L 01/23/17 06:36 Carbon Dioxide 30 mmol/L (22-30) 01/23/17 06:36 Anion Gap 16 (10-20) 01/23/17 06:36 BUN 12 mg/dL (7-17) 01/23/17 06:36 Creatinine 0.6 MG/DL (0.7-1.2) L 01/23/17 06:36 Est GFR ( Amer) > 60 01/23/17 06:36 Est GFR (Non-Af Amer) > 60 01/23/17 06:36 POC Glucose (mg/dL) 119 mg/dL (65-110) H 01/20/17 11:35 Random Glucose 119 mg/dL (65-105) H 01/23/17 06:36 Calcium 7.9 mg/dl (8.6-10.4) L 01/23/17 06:36 Total Bilirubin 0.9 mg/dL (0.2-1.3) 01/22/17 11:11 AST 37 U/L (14-36) H 01/22/17 11:11 ALT 36 U/L (9-52) 01/22/17 11:11 Alkaline Phosphatase 76 U/L (38-126) 01/22/17 11:11 Total Protein 6.6 g/dL (6.3-8.3) 01/22/17 11:11 Albumin 3.4 g/dL (3.5-5.0) L D 01/22/17 11:11 Globulin 3.2 gm/dL (2.2-3.9) 01/22/17 11:11 Albumin/Globulin Ratio 1.1 (1.0-2.1) 01/22/17 11:11 Lipase 33 U/L (23-300) 01/18/17 02:06 - Hospital Course Hospital Course: 66F admitted on 01/18 for abdominal pain 2/2 incarcerated ventral hernia. Pt taken to OR for ex-lpa with reduction of incarcerated bowel & repair of umbilical hernia with mesh. Pt with post op ileus, requiring medication stimulation of bowel and supportive measures. Diet advanced slowly with return of bowel function. Pt stable, ready for discharge on POD #5. Instructed pt to follow up with Dr. Mayen in his office in 1 week. - Date & Time of H&P Date of H&P: 01/18/17 Time of H&P: 06:37 Discharge Exam - Head Exam Head Exam: ATRAUMATIC, NORMAL INSPECTION, NORMOCEPHALIC - Eye Exam Eye Exam: EOMI, Normal appearance - ENT Exam ENT Exam: Mucous Membranes Moist - Neck Exam Neck exam: Full Rom - Respiratory Exam Respiratory Exam: Clear to PA & Lateral, NORMAL BREATHING PATTERN, UNREMARKABLE - Cardiovascular Exam Cardiovascular Exam: REGULAR RHYTHM, +S1, +S2 - GI/Abdominal Exam GI & Abdominal Exam: Normal Bowel Sounds, Soft, Unremarkable. absent: Distended , Firm, Guarding, Hernia, Tenderness Additional comments: Lower abdomen with horizontal surgical incision site w/arabella in place, no drainage, non tender, minimal erythema at staple insertion sites - Extremities Exam Extremities exam: normal inspection - Neurological Exam Neurological exam: Alert, Oriented x3 - Psychiatric Exam Psychiatric exam: Normal Affect, Normal Mood - Skin Skin Exam: Dry, Intact, Normal Color, Warm Discharge Plan - Follow Up Plan Condition: STABLE Disposition: HOME/ ROUTINE Additional Instructions: Please follow up with Dr. Mayen in his office in 1 week after discharge from hospital for evaluation of surgical site. Please return to hospital if you have fevers, chills or excessive abdominal pain. Ok to shower with arabella in place, gently wash area with soap and water. Do not lift anything larger than a milk jug for at least 6 weeks.
== END 2017-01-23 13:25 | disposition home or self-care (01) | DRG 336 ==
LOC: C.ER 01:09 → C.3T 03:03 → C.6T 04:31
PROVIDERS: ADMIT Surgery; ATTEND Surgery
PROC: 0WUF0JZ Supplement Abdominal Wall with Synthetic Substitute, Open Approach (ICD-10-PCS; principal; 2017-01-18 11:00)
PROC: 0DNS0ZZ (ICD-10-PCS; 2017-01-18 11:00)
DX: K42.0 Umbilical hernia with obstruction, without gangrene (principal); K56.7 Ileus, unspecified; K66.0 Peritoneal adhesions (postprocedural) (postinfection)